=== PATIENT | male | born 1970 | race Caucasian/White ===

== ENCOUNTER 2018-05-21 09:12 | Inpatient (IN) | payer MEDICAID, OTHER ==
[~2018-05-21] VITALS: Ht 175.3 cm; Wt 80.0 kg
--- NOTE | 2018-05-21 09:52 | NUR ---
First contact with pt. Pt AOX4, unlabored respirations equal bilaterally, NADN. Pt states, "I am hitch hicking from [place] to get back to [place]. My dad is dying and I went to see him. I don't want to harm anyone else, I don't want to make a mom with her kids crash their car if I decided to jump in front of it." Pt's room secured for SI. Pt denies HI. Pt belonings removed and placed in pt belonging bags and locked in ED locker for safe keeping. Pt provided hospital gown and socs. Pt provided urine sample, UA sent to lab. Pt requests to call ex- from ED to update her on where he is. Sitter near doorway in direct line of sight for observation.
[2018-05-21 10:26] LABS: ALBUMIN 4.1 g/dL (3.4-5.0); ANION GAP 9 mmol/L (5-15); BASOPHILS # (AUTO) 0.01 x10^3/uL (0-0.1); BASOPHILS % (AUTO) 0 % (0-1); CALCIUM 8.7 mg/dL (8.5-10.1); CHLORIDE 107 mmol/L (98-107); EOSINOPHILS # (AUTO) 0.02 x10^3/uL (0-0.4); EOSINOPHILS % (AUTO) 0 % (1-7); LYMPHOCYTES # (AUTO) 1.52 x10^3/uL (1-3.4); LYMPHOCYTES % (AUTO) 26 % (22-44); MD NO; MEAN CORPUSCULAR HGB CONC 33.4 g/dL (33.2-36.2); MEAN CORPUSCULAR VOLUME 95.8 fL (81-97); MONOCYTES # (AUTO) 0.28 x10^3/uL (0.2-0.8); MONOCYTES % (AUTO) 5 % (2-9); NEUTROPHILS # (AUTO) 3.98 x10^3/uL (1.8-6.8); NEUTROPHILS % (AUTO) 69 % (42-75); PLATELET COUNT 227 x10^3/uL (130-400); RED BLOOD COUNT 5.42 x10^6/uL (4.38-5.82); RED CELL DISTRIBUTION WIDTH 13.5 % (9.4-14.8)
[2018-05-21 10:31] LABS: SALICYLATE LEVEL < 1.7 mg/dL (2.8-20.0)
[2018-05-21 10:33] LABS: ACETAMINOPHEN < 2 mcg/mL (10-30)
[2018-05-21 10:36] LABS: AMPHETAMINE SCREEN, URINE Negative (Negative); BARBITURATE SCREEN, URINE Negative (Negative); BENZODIAZEPINE SCREEN, URINE Negative (Negative); CANNABINOID SCREEN, URINE Negative (Negative); COCAINE SCREEN, URINE Negative (Negative); METHADONE SCREEN, URINE Negative (Negative); OPIATE SCREEN, URINE Negative (Negative)
[2018-05-21] MEDS ORDERED: POLYETHYLENE GLYCOL 17 GM PACKET PO PRN (12:00)
[2018-05-21] MEDS ORDERED: TRAZODONE 50MG TABLET PO PRN (12:00)
[2018-05-21] MEDS ORDERED: BISACODYL 10 MG SUPP PR PRN (12:00)
[2018-05-21] MEDS ORDERED: DOCUSATE 100 MG CAPSULE PO PRN (12:00)
[2018-05-21] MEDS ORDERED: ONDANSETRON 2MG/ML, 2ML IVPush PRN (12:00)
[2018-05-21] MEDS ORDERED: hydrALAzine 20 MG/ML, 1ML IVPush PRN (12:00)
[2018-05-21] MEDS ORDERED: ONDANSETRON ODT 4 MG PO PRN (12:00)
--- NOTE | 2018-05-21 12:08 | NUR ---
Pt provided lunch tray. NADN. All SI precautions in place. Sitter near doorway in direct line of sight for observation. No needs expressed.
[2018-05-21 12:31] LABS: FREE T4 (FREE THYROXINE) 1.02 ng/dL (0.76-1.46); THYROID STIMULATING HORMONE 1.43 mIU/L (0.358-3.740)
[2018-05-21 12:34] LABS: HEMOGLOBIN A1C 5.2 % (4.2-6.3)
--- NOTE | 2018-05-21 12:59 | NUR ---
LUNCH RN: LO 0.038 AT THIS TIME, PT NOW SOBER AND ABLE TO GO TO 2N
--- NOTE | 2018-05-21 13:47 | NUR ---
REPORT TO ANNIKA ANG, WHO REQUESTED THAT ED RN CALL THE HOSPITALIST FOR A PRN FOR THE PT INSTEAD OF CALLING TO REQUEST PRN HERSELF. PT TO BE TRANSPORTED W/ 2 PERSON TRANSPORT VIA WHEELCHAIR TO ADMIT BED.
--- NOTE | 2018-05-21 13:50 | NUR ---
MD JONES CALLED PER ANNIKA ANG REQUEST AND NOTIFIED OF HER REQUEST FOR A PRN.
[2018-05-21 14:08] VITALS: BP 105/69
[2018-05-21] MEDS: ACETAMINOPHEN 325 MG TABLET PO PRN (14:27)
[2018-05-21] MEDS: ENOXAPARIN 40 MG/0.4 ML SQ SCH (15:32)
[2018-05-21 16:51] LABS: MICROSCOPIC NOT IND
[2018-05-21 17:00] LABS: CULTURE INDICATED? NO
[2018-05-21 19:17] VITALS: BP 112/75
[2018-05-21] MEDS: FAMOTIDINE 20 MG TABLET PO SCH (20:36)
[2018-05-22 06:37] LABS: BASOPHILS # (AUTO) 0.04 x10^3/uL (0-0.1); BASOPHILS % (AUTO) 1 % (0-1); EOSINOPHILS # (AUTO) 0.14 x10^3/uL (0-0.4); EOSINOPHILS % (AUTO) 3 % (1-7); LYMPHOCYTES # (AUTO) 1.97 x10^3/uL (1-3.4); LYMPHOCYTES % (AUTO) 42 % (22-44); MD NO; MEAN CORPUSCULAR HEMOGLOBIN 32.6 pg (27.5-34.5); MEAN CORPUSCULAR HGB CONC 33.8 g/dL (33.2-36.2); MEAN CORPUSCULAR VOLUME 96.4 fL (81-97); MEAN PLATELET VOLUME 7.9 fL (7.4-10.4); MONOCYTES # (AUTO) 0.46 x10^3/uL (0.2-0.8); MONOCYTES % (AUTO) 10 % (2-9); NEUTROPHILS # (AUTO) 2.06 x10^3/uL (1.8-6.8); NEUTROPHILS % (AUTO) 44 % (42-75); PLATELET COUNT 185 x10^3/uL (130-400); RED BLOOD COUNT 4.94 x10^6/uL (4.38-5.82); RED CELL DISTRIBUTION WIDTH 13.6 % (9.4-14.8)
[2018-05-22 06:40] LABS: ANION GAP 4 mmol/L (5-15); CALCIUM 8.8 mg/dL (8.5-10.1); CHLORIDE 105 mmol/L (98-107); CREATININE 0.87 mg/dL (0.7-1.3)
[2018-05-22 07:38] VITALS: BP 108/68
[2018-05-22] MEDS: FAMOTIDINE 20 MG TABLET PO SCH ×2 (09:32→20:58)
[2018-05-22] MEDS: ENOXAPARIN 40 MG/0.4 ML SQ SCH ×2 (11:54→12:00)
[2018-05-22 20:51] VITALS: BP 134/74
[2018-05-23 07:51] VITALS: BP 115/68
[2018-05-23] MEDS: FAMOTIDINE 20 MG TABLET PO SCH ×2 (08:00→20:21)
[2018-05-23] MEDS: ENOXAPARIN 40 MG/0.4 ML SQ SCH (11:53)
[2018-05-23 19:08] VITALS: BP 130/81
[2018-05-24 07:50] VITALS: BP 113/70
[2018-05-24] MEDS: FAMOTIDINE 20 MG TABLET PO SCH ×2 (08:22→20:58)
[2018-05-24] MEDS: ENOXAPARIN 40 MG/0.4 ML SQ SCH (13:02)
[2018-05-24 20:00] VITALS: BP 121/73
[2018-05-25 07:29] VITALS: BP 112/69
[2018-05-25] MEDS: FAMOTIDINE 20 MG TABLET PO SCH ×2 (08:21→21:31)
[2018-05-25] MEDS: ENOXAPARIN 40 MG/0.4 ML SQ SCH (12:05)
[2018-05-25 19:49] VITALS: BP 125/80
[2018-05-25] MEDS: ACETAMINOPHEN 325 MG TABLET PO PRN (23:48)
[2018-05-26 08:00] VITALS: BP 107/69
[2018-05-26] MEDS: FAMOTIDINE 20 MG TABLET PO SCH (08:10)
[2018-05-26] MEDS: ENOXAPARIN 40 MG/0.4 ML SQ SCH (12:00)
== END 2018-05-26 12:59 | disposition left against medical advice (07) | DRG 885 ==
LOC: ED 10:38 → EDIP 10:56 → OBSVTOIN 11:16 → 2N 14:00
PROVIDERS: ADMIT Internal Medicine; ATTEND Internal Medicine
DX: F31.9 Bipolar disorder, unspecified (principal); F60.9 Personality disorder, unspecified; F90.9 Attention-deficit hyperactivity disorder, unspecified type; Z59.0 Homelessness; Z80.42 Family history of malignant neoplasm of prostate; Z91.14 Patient's other noncompliance with medication regimen; Z53.21 Procedure and treatment not carried out due to patient leaving prior to being seen by health care provider
CPT/HCPCS: 36415; 80048; 80307; 80329; 81003; 82040; 83036; 84439; 84443; 85025; 99285; G0378; J1650; G0480